=== PATIENT | female | born 1950 | race Caucasian/White ===

== ENCOUNTER 2021-09-29 06:59 | Emergency (ER) | payer OTHER ==
[~2021-09-29] VITALS: Ht 162.6 cm; Wt 72.6 kg
[2021-09-29] MEDS ORDERED: CYCLOBENZAPRINE10 MG PO (07:27)
[2021-09-29] MEDS ORDERED: LIDOCAINE1 EAC1 EXT (07:27)
== END 2021-09-29 07:35 | disposition home or self-care (01) ==
LOC: ER 07:05
DX: M54.6 Pain in thoracic spine (principal); S29.012A Strain of muscle and tendon of back wall of thorax, initial encounter; X50.1XXA Overexertion from prolonged static or awkward postures, initial encounter; Y92.098 Other place in other non-institutional residence as the place of occurrence of the external cause; I10 Essential (primary) hypertension; E11.9 Type 2 diabetes mellitus without complications; E78.5 Hyperlipidemia, unspecified
CPT/HCPCS: 99282